=== PATIENT | male | born 1980 | race Caucasian/White ===

== ENCOUNTER 2024-09-23 13:04 | Emergency (ER) | payer BC, SELFPAY ==
[2024-09-23 13:19] VITALS: BP 117/76; PULSE 76; RESP 16; TEMP 37.3; O2SAT 96
--- NOTE | 2024-09-23 13:46 | ED.BACK ---
HPI - Back Pain/Injury General Chief Complaint: Back Pain/Injury Stated Complaint: Lower left back pain Time Seen by Provider: 09/23/24 13:46 Source: patient Mode of arrival: ambulatory Limitations: no limitations History of Present Illness HPI Narrative: 44-year-old male presented for complaint of left lower back pain radiating into the left hip. Onset 5 days. States pain started after throwing boulders into a cross, admit to twisting movements. Taking naproxen. States he has had similar pain in the past. Denies pain radiating into the legs, numbness, tingling, weakness of the lower extremities, or change in gait, saddle paresthesia or loss of bowel or bladder. Related Data Home Medications Medication Instructions Recorded Confirmed bupropion HCl 150 mg 24 hr tablet, 150 mg PO DAILY 09/23/24 09/23/24 extended release rosuvastatin 10 mg tablet 10 mg PO DAILY 09/23/24 09/23/24 Allergies Allergy/AdvReac Type Severity Reaction Status Date / Time No Known Allergies Allergy Verified 09/23/24 13:35 Review of Systems Review of Systems: CONSTITUTIONAL: Denies body aches, fever, chills EYES: Denies visual changes CARDIOVASCULAR: Denies chest pain, palpitations, or edema. RESPIRATORY: Denies cough or dyspnea. GASTROINTESTINAL: Denies abdominal pain, nausea, vomiting, or diarrhea. SKIN: Denies rash, itching, or wounds. MUSCULOSKELETAL: reports back pain NEUROLOGIC: Denies numbness, tingling, or weakness. All systems reviewed & are unremarkable except as noted in HPI and below PMFSH Comments At time of signature, I have reviewed and agree with nursing past medical, surgical, social and family history unless otherwise noted. Please see nursing chart for further information. There is no relevant family history pertinent to the presenting complaint Exam Narrative: GENERAL: Well-appearing CHEST: Speaks in full sentences. No respiratory distress. HEART: Regular rate and rhythm. Normal and equal peripheral pulses. MUSC: No Vertebral point or paraspinal lumbar tenderness. BLEs with normal strength and sensation, normal range of motion; endorses pain with twisting movement. No open wounds, or obvious deformity; alignment normal, pulse palpable and equal bilaterally, skin warm, dry, pink. Capillary refill less than 3 seconds. Gait steady. SKIN: Warm, dry, no rash. NEURO: Alert and oriented x3. Course Course Emergency Course: Patient is aware of diagnosis, understands and agrees to treatment plan. Anticipatory guidance given. Patient agrees to follow-up as directed and is aware of reasons to seek care at the emergency department. Portions of this record may have been created with voice recognition software Level of Care: Express Care Visit Vital Signs Vital signs: Vital Signs Temperature 99.1 F 09/23/24 13:19 Pulse Rate 76 09/23/24 13:19 Respiratory Rate 16 09/23/24 13:19 Blood Pressure 117/76 09/23/24 13:19 Pulse Oximetry 96 09/23/24 13:19 Oxygen Delivery Room Air 09/23/24 13:19 Temperature 99.1 F 09/23/24 13:19 Pulse Rate 76 09/23/24 13:19 Respiratory Rate 16 09/23/24 13:19 Blood Pressure 117/76 09/23/24 13:19 Pulse Oximetry 96 09/23/24 13:19 Oxygen Delivery Room Air 09/23/24 13:19 Reviewed MDM - Back Pain/Injury MDM Narrative Medical decision making narrative: Discussed physical exam findings. Advised supportive measures and signs/symptoms to go to the ER. Pt is appropriate for outpt treatment and f/u. Differential Diagnosis Differential diagnosis: Likely lumbar radiculopathy, sciatica, strain of lumbar region, renal colic, pyelonephritis and discitis Discharge Plan Discharge Clinical Impression: Lumbar radiculopathy Patient Disposition: Home, Self-Care Condition: Stable Instructions: Antibiotic Form, Acute Low Back Pain (ED) Additional Instructions: Avoid lifting. pushing. pulling, or anything that worsens the pain. Walking and other gentle exercising several times a week has been shown to improve back pain; bed rest is not recommended. Take Motrin 600-800mg every 6-8 hours with food for the next 2-3 days, along with Tylenol 1000mg every 8 hours Take muscle relaxers every 8 hours as needed for muscle spasm- do not drive or make any important decisions while on this medication for it can make you drowsy. Over the counter pain cream like icy/hot or biofreeze, or Salon pas/lidocaine 4% patch. You may apply heat or cold to the area as needed. Please follow up with your Primary Care Doctor - call for an appointment. go to the ER If you experience any worsening pain, swelling, numbness, weakness, problems with bladder or bowel function, weakness or loss of feeling in one or both of your legs, or any other serious concerns. Prescriptions: New cyclobenzaprine 10 mg tablet 10 mg PO TID PRN (Reason: muscle spasm) Qty: 10 0RF prednisone 20 mg tablet 20 mg PO DAILY Qty: 18 0RF Rx Instructions: take 3 tablets daily for 3 days, then 2 tablets daily for 3 days then 1 tablet daily for 3 days No Action rosuvastatin 10 mg tablet 10 mg PO DAILY bupropion HCl 150 mg tablet extended release 24 hr 150 mg PO DAILY Follow-up/Referrals: Thomas,SAMANTHA Villareal [Primary Care Provider] -
== END 2024-09-23 13:59 | disposition home or self-care (01) ==
PROVIDERS: Emergency Provider Nurse Practitioner Family; PCP Physician Assistant
DX: M54.16 Radiculopathy, lumbar region (principal); E78.00 Pure hypercholesterolemia, unspecified
CPT/HCPCS: 99203; G0463

== ENCOUNTER 2025-09-08 16:23 | Emergency (ER) | payer OTHER, SELFPAY ==
[2025-09-08 16:34] VITALS: BP 113/87; PULSE 81; RESP 18; TEMP 36.8; O2SAT 98
--- NOTE | 2025-09-08 17:37 | PC.NURSE ---
PT CAME OUT OF ROOM AND STATED THAT HE NEEDED TO GET GOING HE HAD KIDS TO GET TO [facility], HE CAN'T WAIT 2 HOURS. PT STATES HE WOULD JUST COME BACK TOMORROW.
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
--- OUTSIDE RECORDS SUMMARY | 2025-09-08 19:46 | XMS_ITS | Clinical Summary ---
Author Organization [facility] Address [address] [place] [address] Care Team Providers Care A/C Tech Name Role Phone Unavailable Primary Care Provider Unavailabl e Social History Tobacco Use Types Packs/Day Years Used Date Smoking Tobacco: Never Assessed Sex and Gender Information Value Date Recorded Sex Assigned at Not on file Legal Sex Male 10:52 AM CDT Gender Identity Not on file Sexual Orientation Not on file Plan of Treatment Health Maintenance Due Date Last Done Comments HEPATITIS B VACCINES (1 of 3 - 19+ 3-dose series) 1997 10/27/2008, 07/31/2005, 06/01/2004 DTAP/TDAP/TD VACCINES (3 - T d or Tdap) 01/04/2020 01/04/2010, 11/19/2008 COLORECTAL SCREENING 2023 Colorectal Cancer Screening 2023 FIT-DNA Q 3 years 2023 FIT/FOBT Q 1 year 2023 Flex Sig/CT Colonography Q 5 years 2023 INFLUENZA VACCINE (#1) 2025 , 10/04/2019, 10/04/2019, Additional history exists Insurance [employer]
--- OUTSIDE RECORDS SUMMARY | 2025-09-08 19:46 | XMS_ITS | Clinical Summary ---
Author Organization [facility] Address [address] [place] [address] Care Team Providers Care Motion Picture Printer Name Role Phone Dionna Guzman Primary Care Prov ider Allergies Active Allergy Reactions Criticality Noted Date Comments Simvastatin Other (See comments) Low 03/29/2023 Joint pain Medications multivitamin capsule Take 1 capsule by mouth daily Active fish oil-dha-epa 1,200-144-216 mg capsule Take by mouth Active Active Problems Problem Noted Date Diagnosed Date CORRIE (obstructive sleep apnea) 08/12/2024 Psychophysiological insomnia 08/12/2024 Nonsmoker 08/12/2024 BMI 33.0-33.9,adult 08/12/2024 Achilles tendinitis 08/13/2023 Ankle joint stiffness 08/13/2023 Pain in joint involving ankle and foot Closed fracture of lateral malleolus 08/13/2023 Overview (08/13/2023): 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 Closed fracture of left ankle 08/13/2023 activity 08/13/2023 Obesity 08/13/2023 Posttraumatic stress disorder 08/13/2023 Ganglion cyst 08/13/2023 Ganglion cyst of volar aspect of right wrist Chest pressure 03/10/2022 Assessment & Plan (03/10/2022 2:13 PM CDT): The patient's chest pain is atypical for coronary artery disease. Will obtain a stress echocardiogram. Hyperlipidemia 03/10/2022 Popliteal cyst, right 08/29/2018 Surgical History Surgery Date Site/Laterality Comments LEG SURGERY SHOULDER SURGERY GALLBLADDER SURGERY 01/14/2024 Medical History Medical History Date Comments High cholesterol Family History Medical History Relation Name Comments Cancer Maternal Grandfather Relation Name Status Comments Maternal Grandfather Social History Tobacco Use Types Packs/Day Years Used Date Smoking Tobacco: Never Smokeless Tobacco: Never Tobacco Cessation:Counseling Given: Not Answered Alcohol Use Standard Drinks/Week Comments Never 0 (1 standard drink = 0.6 oz pur e alcohol) AUDIT-C Answer Date Recorded Q1: How often do you have a drink containing alcohol? Never 08/17/2023 Q2: How many drinks containi ng alcohol do you have on a typical day when you are drinking? Patient does not drink Q3: How often do you have si x or more drinks on one occasion? Never 08/17/2023 Personal Safety Answer Date Recorded Have you ever been in or are you currently in a harmful physical or emotional relationship or is someone making you feel afraid or unsafe? Denies 12/13/2023 Sex and Gender Information Value Date Recorded Sex Assigned at Not on file Legal Sex Male 4:29 PM STONER OUT Gender Identity Not on file Sexual Orientation Not on file Obstetrics History Last Filed Vital Signs Vital Sign Reading Time Taken Comments Blood Pressure 109/80 08/12/2024 1:00 PM CDT Pulse 64 08/12/2024 1:00 PM CDT Temperature 36.6 C (97.8 F) 12/13/2023 3:33 AM STONER OUT Respiratory Rate 18 08/12/2024 1:00 PM CDT Oxygen Saturation 96% 08/12/2024 1:00 PM CDT Inhaled Oxygen Concentration - - Weight 112.9 kg (249 lb) 08/12/2024 1:00 PM CDT Height 182.9 cm (6') 08/12/2024 1:00 PM CDT Body Mass Index 33.77 08/12/2024 1:00 PM CDT Plan of Treatment Health Maintenance Due Date Last Done Comments Colon Cancer Screening-Colonoscopy 1978 Depression Screening 1978 Hepatitis C Screening 1978 Regular Well Visit/Exam 18-64 1996 DTaP/Tdap/Td Vaccine (3 - Td or Tdap) 01/04/2020 01/04/2010, 11/19/2008, 02/13/2003 Influenza Vaccine (#1) 2025 , 12/08/2022, 10/04/2019, Additional history exists Hepatitis B Screening Completed 10/27/2008 , 07/31/2005, 06/01/2004 Pneumococcal vaccine <65 Aged Out No longer eligible based on patient's age to complete this topic Insurance Service Route [facility] [employer] [facility] Member Subscriber Plan / Payer (Ef fective 2007-Present) Name:Pillo Foster Relation to Subscriber:Self Name:Pillo Foster Payer ID:[id number] (NAIC) Group ID:[id number] Type: [employer] Address: [facility] [id number] [place] [phone] [facility] Care Teams Motion Picture Printer Relationship Specialty Start Date End Date Dionna Guzman PA PCP - General 03/05/19
--- OUTSIDE RECORDS SUMMARY | 2025-09-08 19:46 | XMS_ITS | Clinical Summary ---
Author Organization [facility] Address [address] [place] [address] Care Team Providers Care Anvilsmith Name Role Phone Unavailable Primary Care Provider Unavailabl e Source Comments [facility] [employer],non-owned Affiliates and Associated Physician Practices is amultiple site organization consisting of ambulatory clinics and hospital sitesin [place], [place], [place] and [place]. This disclosure is being madepursuant to the Care Everywhere program and may not contain all information available regarding this patient. Last updated 18.[facility] [employer] Allergies No known active allergies Medications * Be aware that medications may not be up to date on this document. Alwaysverify current medications with the patient. 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 Gender Identity Not on file Sexual Orientation Not on file Last Filed Vital Signs Vital Sign Reading Time Taken Comments Blood Pressure 126/78 03/16/2021 11:30 AM CDT Pulse 68 03/16/2021 11:30 AM CDT Temperature 36.8 C (98.2 F) 03/16/2021 11:30 AM CDT Respiratory Rate 20 03/16/2021 11:30 AM CDT Oxygen Saturation - - Inhaled Oxygen Concentration - - Weight - - Height - - Body Mass Index - - Plan of Treatment Health Maintenance Due Date Last Done Comments STU (AGES 45-75) - COLON CA SCREENING 1978 COLON MONITORING 1978 COLONOSCOPY - COLON CA SCREENING 1978 CT COLONOGRAPHY - COLON CA SCREENING 1978 Colorectal Cancer Screening 1978 FIT - COLON CA SCREENING 1978 FLEX SIG - COLON CA SCREENING 1978 LIPID TESTING 1978 HIV SCREENING 1993 HEPATITIS C SCREENING 07/22/1996 DTAP/TDAP/TD VACCINES (1 - Tdap) 1997 HEPATITIS B VACCINE (1 of 3 - 19+ 3-dose series) 1997 DEPRESSION SCREENING 11/19/2024 COVID-19 VACCINE (1 - 2023- season) 2025 INFLUENZA VACCINE (#1) 2025 8, 10/03/2017, 08/07/2013, Additional history exists ZOSTER VACCINE (1 of 2) 2028 HIB VACCINE Aged Out No longer eligi ble based on patient's age to complete this topic HPV VACCINE Aged Out No longer eligi ble based on patient's age to complete this topic MENINGOCOCCAL (Group B) VACCINE SHARED DECISION-MAKING Aged Out No longer eligible based on patient's age to complete this topic MENINGOCOCCAL GROUPS A/C/Y/W VACCINE Aged Out No longer eligible based on patient's age to complete this topic PNEUMOCOCCAL VACCINE Aged Out No long er eligible based on patient's age to complete this topic Insurance [facility]
--- OUTSIDE RECORDS SUMMARY | 2025-09-08 19:47 | XMS_ITS | Clinical Summary ---
Author Organization [facility] Address [address] [place] [address] Phone Care Team Providers Care Benefit Specialist Name Role Phone JADIEL PALMA MD Unavailable [phone] Reason for Visit and Chief Complaint PROBLEM VISIT Plan of Treatment Referrals To Diagnosis General Surgery FAUSTO CHRISTOPHER - [facility] - [address] [place] [address] - Left upper quadrant abdominal swelling, mass and lump Last Documented On 7 3:58PM ; [facility] Assessments Includes: Assessments from this encounter Findings Allergic bronchitis: otc claritin. - Last Documented On 09/09/2015 6:20PM ; [facility] Fatigue: check labs. - Last Documented On 09/09/2015 6:20PM ; [facility] Restrictive lung disease: consider inhaler. - Last Documented On 09/09/2015 6:20PM ; [facility] Medical Equipment - Implanted Devices Includes: Current Devices No Medical Equipment Recorded Medications Includes: Medications discussed during this encounter and other current Medications Current Medications (continue as prescribed) Viagra 100 MG Tablet 10/12/2015 Provider: JADIEL PALMA MD Diagnosis: Male erectile dy sfunction, unspecified One tablet daily Last Documented On 10/12/2015 12:51PM By JADIEL PALMA MD ; [facility] Medications Administered Includes: Administered Medications from this encounter No Administered Medications Recorded Vital Signs Includes: Vital Signs from this encounter Vital Name 09/09/2015 03:29P Blood Pressure Sitting R 90/70 BP Cuff Size Regular Pulse Rate-Sitting (bpm) 78 Pulse Rhythm Regular Temp-Oral (F) 98.2 Height (in) 72 Weight (lb) 209.2 Body Mass Index (kg/m2) 28.4 Body Surface Area (m2) 2.2 Oxygen Saturation (%) 98 Last Documented: On 09/09/2015 3:32PM ; [facility] Results Includes: Results discussed during this encounter No Results Recorded For Specified Dates History of Present Illness Includes: History of Present Illness from this encounter OLIVERIO STEWARD is a 35 year old male. This 35 year old presents to the office complaining of fatigue and weight gain over the past several months to year. 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 Patient also complains of chest congestion for 3 weeks. He states when he was in stationed in [place] he was exposed to sulfur gas. [facility] and has been diagnosed with restrictive lung disease by pulmonary function tests one and a half years ago. He states he was told he has stiff lungs. Patient states that he has a minor cough that is nonproductive caused by irritation in his throat. He denies history of asthma. He denies sinus congestion and postnasal drainage. - Medication list reviewed with patient. Social History Description Last Updated Good exercise habits runs 5 miles daily ~regular diet 09/09/2015 Last Documented On 5 6:20PM ; [facility] No life circumstance event 09/09/2015 Last Documented On 5 6:20PM ; [facility] No physical disability 09/09/2015 Last Documented On 5 6:20PM ; [facility] Normal activities of daily living 2014 Last Documented On 5 6:20PM ; [facility] Alcohol use 3-4 beers 1-2 times/month Last Documented On 5 6:20PM ; [facility] Currently not in school associate degree 09/09/2015 Last Documented On 5 6:20PM ; [facility] No tobacco use 09/09/2015 Last Documented On 5 6:20PM ; [facility] Not a former smoker 09/09/2015 Last Documented On 5 6:20PM ; [facility] Not using drugs 09/09/2015 Last Documented On 5 6:20PM ; [facility] Occupation [employer]. Rese rves 09/09/2015 Last Documented On 5 6:20PM ; [facility] Single with 3 children 09/09/2015 Last Documented On 5 6:20PM ; [facility] Smoking status : Never smoker 09/09/2015 Last Documented On 5 6:20PM ; [facility] Procedures and Surgical History Surgical History Last Updated History of orthopedic surger y left ankle/leg fracture repair 2003 ~right shoulder anchor placed 200209/09/2015 Last Documented On 5 6:20PM ; [facility] Medical History Includes: Medical History addressed during this encounter No Medical History Recorded Family History Includes: Family History addressed during this encounter Description Last Updated Paternal grandfather's history of Alzhei grace disease 09/09/2015 Last Documented On 5 6:20PM ; [facility] Sister in good health and denies signifi cant illness 09/09/2015 Last Documented On 5 6:20PM ; [facility] Brother in good health and denies signif icant illness 09/09/2015 Last Documented On 5 6:20PM ; [facility] 2 sons, 1 daughter healthy 09/09/2015 Last Documented On 5 6:20PM ; [facility] Family history of breast cancer mother 1 Last Documented On 5 6:20PM ; [facility] Family history of hypertension father Last Documented On 5 6:20PM ; [facility] Family history of cancer grandfather Last Documented On 5 6:20PM ; [facility] Family history of heart disease grandmot her 09/09/2015 Last Documented On 5 6:20PM ; [facility] Review of Systems Includes: Review of Systems from this encounter Systemic: No fever, no chills, and no night sweats. Head: No headache and no sinus pain. Eyes: No vision problems and no eye pain. Otolaryngeal: No hearing loss, no earache, no tinnitus, no hoarseness, and no sore throat. Cardiovascular: No chest pain or discomfort, no palpitations, and the heart rate was not fast. Pulmonary: No dyspnea, no cough, no hemoptysis, and no wheezing. Gastrointestinal: No heartburn. No nausea and no vomiting. Abdominal pain. No diarrhea. Mental Status Includes: Mental Status from this encounter No Mental Status Recorded Functional Status Includes: Functional Status from this encounter No Functional Status Recorded Physical Exam Includes: Physical Exam from this encounter Allergies Includes: Active Allergies No Known Allergies Encounters Encounter Provider Location Date Check-In Time Check-Out Time Diagnosis PROBLEM VISIT ANTONY PHELPS MD [facility] 09/09/20 15 2:25PM 3:58PM Assessment [use For S.o.a.p. Note Free Text] Insurance Includes: Active Insurance Policies Plan Name Member ID Group # Subscriber Relationship Effect anthony Dates - [facility][1] [id number] YURI Reilly Clinical Notes Includes: Clinical Notes from this encounter No Clinical Notes Recorded
--- OUTSIDE RECORDS SUMMARY | 2025-09-08 19:47 | XMS_ITS | Clinical Summary ---
Author Organization [facility] Address [address] [place] [address] Phone Care Team Providers Care Pathology Teacher Name Role Phone LOUIE KWOK, JADIEL Brizuela [phone] Reason for Visit and Chief Complaint NO SHOW Plan of Treatment No Plan of Treatment Recorded Assessments Includes: Assessments from this encounter No Assessments Recorded Medical Equipment - Implanted Devices Includes: Current Devices No Medical Equipment Recorded Medications Includes: Medications discussed during this encounter and other current Medications Current Medications (continue as prescribed) Viagra 100 MG Tablet 10/12/2015 Provider: JADIEL PALMA MD Diagnosis: Male erectile dy sfunction, unspecified One tablet daily Last Documented On 10/12/2015 12:51PM By JADIEL PALMA MD ; [facility] Medications Administered Includes: Administered Medications from this encounter No Administered Medications Recorded Results Includes: Results discussed during this encounter No Results Recorded For Specified Dates History of Present Illness Includes: History of Present Illness from this encounter No History of Present Illness Recorded Social History No Social History Recorded - Smoking Status Unknown Medical History Includes: Medical History addressed during this encounter No Medical History Recorded Family History Includes: Family History addressed during this encounter No Family History Recorded Review of Systems Includes: Review of Systems from this encounter No Review of Systems Recorded Mental Status Includes: Mental Status from this encounter No Mental Status Recorded Functional Status Includes: Functional Status from this encounter No Functional Status Recorded Physical Exam Includes: Physical Exam from this encounter No Physical Exam Recorded Allergies Includes: Active Allergies No Known Allergies Insurance Includes: Active Insurance Policies Plan Name Member ID Group # Subscriber Relationship Effect anthony Dates - [facility] [id number] YURI STEWARD Self Clinical Notes Includes: Clinical Notes from this encounter No Clinical Notes Recorded
--- OUTSIDE RECORDS SUMMARY | 2025-09-08 19:47 | XMS_ITS | Clinical Summary ---
Author Organization [facility] Address [address] [place] [address] Phone Care Team Providers Care Pump Tender Name Role Phone LOUIE KWOK, JADIEL Brizuela [phone] Reason for Visit and Chief Complaint The Chief Complaint is: F/U ON BLOOD WORK Plan of Treatment test levels good w marked wt encouraged 3 sq/d cut [employer] exercise - Last Documented On 10/12/2015 1:34PM ; [facility] Instructions to patient Instructions for patient Last Documented On 5 1:34PM ; [facility] Assessments Includes: Assessments from this encounter No Assessments Recorded Instructions Includes: Instructions from this encounter Instructions to patient Instructions for patient Last Documented On 5 1:34PM ; [facility] Medical Equipment - Implanted Devices Includes: Current Devices No Medical Equipment Recorded Medications Includes: Medications discussed during this encounter and other current Medications New / Renewed during this visit JADIEL PALMA MD on 10/12/2015 Viagra 100 MG Tablet Provider: JADIEL PALMA MD 6 day supply: 6 tablet, 5 refills Diagnosis: Male erectile dysfunction, unspecified One tablet daily Pharmacy: [facility] [address], [phone] - Last Documented On 10/12/2015 12:51PM By JADIEL PALMA MD ; [facility] Medications Administered Includes: Administered Medications from this encounter No Administered Medications Recorded Vital Signs Includes: Vital Signs from this encounter Vital Name 10/12/2015 12:13P Blood Pressure Sitting L 120/80 BP Cuff Size Large Pulse Rate-Sitting (bpm) 67 Pulse Rhythm Regular Respiration Rate (breaths/min) 20 Height (in) 72 Weight (lb) 219 Body Mass Index (kg/m2) 29.7 Body Surface Area (m2) 2.2 Oxygen Saturation (%) 95 Last Documented: On 10/12/2015 12:18P M ; [facility] Results Includes: Results discussed during this encounter No Results Recorded For Specified Dates History of Present Illness Includes: History of Present Illness from this encounter OLIVERIO STEWARD is a 35 year old male. - Medication list reviewed. - No systemic symptoms. - No cardiovascular symptoms - No chest pain or discomfort - No pulmonary symptoms - No dyspnea - No musculoskeletal symptoms Social History Description Last Updated Good exercise habits runs 5 miles daily ~regular diet 09/09/2015 Last Documented On 5 1:33PM ; [facility] No life circumstance event 09/09/2015 Last Documented On 5 1:33PM ; [facility] No physical disability 09/09/2015 Last Documented On 5 1:33PM ; [facility] Normal activities of daily living 2014 Last Documented On 5 1:33PM ; [facility] Alcohol use 3-4 beers 1-2 times/month Last Documented On 5 1:33PM ; [facility] Currently not in school associate degree 09/09/2015 Last Documented On 5 1:33PM ; [facility] No tobacco use 09/09/2015 Last Documented On 5 1:33PM ; [facility] Not a former smoker 09/09/2015 Last Documented On 5 1:33PM ; [facility] Not using drugs 09/09/2015 Last Documented On 5 1:33PM ; [facility] Occupation [employer]. Reser ves 09/09/2015 Last Documented On 5 1:33PM ; [facility] Single with 3 children 09/09/2015 Last Documented On 5 1:33PM ; [facility] Smoking status : Never smoker 09/09/2015 Last Documented On 5 1:33PM ; [facility] Procedures and Surgical History Includes: Procedures from this encounter Procedures Code Diagnosis Performing Provider Service L ocation Service Date Clinical summary provided to patient Last Documented On 5 1:34PM ; [facility] Surgical History Last Updated History of orthopedic surger y left ankle/leg fracture repair 2003 ~right shoulder anchor placed 200209/09/2015 Last Documented On 5 1:33PM ; [facility] Medical History Includes: Medical History addressed during this encounter No Medical History Recorded Family History Includes: Family History addressed during this encounter Description Last Updated Paternal grandfather's history of Alzhei grace disease 09/09/2015 Last Documented On 5 1:33PM ; [facility] Sister in good health and denies signifi cant illness 09/09/2015 Last Documented On 5 1:33PM ; [facility] Brother in good health and denies signif icant illness 09/09/2015 Last Documented On 5 1:33PM ; [facility] 2 sons, 1 daughter healthy 09/09/2015 Last Documented On 5 1:33PM ; [facility] Family history of breast cancer mother 1 Last Documented On 5 1:33PM ; [facility] Family history of hypertension father Last Documented On 5 1:33PM ; [facility] Family history of cancer grandfather Last Documented On 5 1:33PM ; [facility] Family history of heart disease grandmot her 09/09/2015 Last Documented On 5 1:33PM ; [facility] Review of Systems Includes: Review of Systems from this encounter No Review of Systems Recorded Mental Status Includes: Mental Status from this encounter Description The memory was unimpaired Judgement was not impaired Functional Status Includes: Functional Status from this encounter No Functional Status Recorded Physical Exam Includes: Physical Exam from this encounter Allergies Includes: Active Allergies No Known Allergies Encounters Encounter Provider Location Date Check-In Time Check- Out Time Diagnosis NEW PATIENT VISIT JADIEL PALMA MD [facility]- 5 11:43AM 1:34PM Insurance Includes: Active Insurance Policies Plan Name Member ID Group # Subscriber Relationship Effect anthony Dates 1 - [facility] [id number] YURI Reilly Clinical Notes Includes: Clinical Notes from this encounter No Clinical Notes Recorded
--- OUTSIDE RECORDS SUMMARY | 2025-09-08 19:47 | XMS_ITS ---
Care Plan - [facility] Created on: September 08, 2025 YURI STEWARD : 1980 Sex: Male Author Organization [facility] Address [address] [place] [address] Phone Care Team Providers Care Stable Attendant Name Role Phone LOUIE KWOK, JADIEL Martínez Unavailable [phone]
--- OUTSIDE RECORDS SUMMARY | 2025-09-08 19:47 | XMS_ITS ---
Author Organization [facility] Address [address] [place] [address] Phone Care Team Providers Care Certified Lactation Counselor Name Role Phone LOUIE KWOK, JADIEL Martínez Unavailable [phone] Plan of Treatment Referrals To Diagnosis General Surgery FAUSTO CHRISTOPHER - [facility] - [address] [place] [address] - Left upper quadrant abdominal swelling, mass and lump Last Documented On 7 3:58PM ; [facility] Instructions to patient Instructions for patient Last Documented On 5 1:34PM ; [facility] Assessments Includes: Assessments for all patient encounters Findings Encounter Date Allergic bronchitis: otc cla ritin. Fatigue: check labs. Restrictive lung disease: consider inhaler PROBLEM VISIT with ANTONY PHELPS MD 09/09/2015 Last Documented On 5 6:20PM ; [facility] Instructions Includes: Instructions for all patient encounters Instructions to patient Instructions for patient Last Documented On 5 1:34PM ; [facility] Medical Equipment - Implanted Devices Includes: Current and historical Devices No Medical Equipment Recorded Medications Includes: Current and historical Medications Current Medications (continue as prescribed) Viagra 100 MG Tablet 10/12/2015 Provider: JADIEL PALMA MD Diagnosis: Male erectile dy sfunction, unspecified One tablet daily Last Documented On 10/12/2015 12:51PM By JADIEL PALMA MD ; [facility] Medications Administered Includes: Administered Medications in patient's chart No Administered Medications Recorded Results Includes: Results from 09/08/2024 through 09/08/2025 No Results Recorded For Specified Dates History of Present Illness History of Present Illness not supported for this document type No History of Present Illness Recorded Social History Description Last Updated Good exercise habits runs 5 miles daily ~regular diet 09/09/2015 Last Documented On 5 6:20PM ; [facility] No life circumstance event 09/09/2015 Last Documented On 5 6:20PM ; [facility] No physical disability 09/09/2015 Last Documented On 5 6:20PM ; [facility] Normal activities of daily living 2014 Last Documented On 5 6:20PM ; [facility] Alcohol use 3-4 beers 1-2 times/month Last Documented On 5 6:20PM ; [facility] Currently not in school associate degree 09/09/2015 Last Documented On 5 6:20PM ; [facility] No tobacco use 09/09/2015 Last Documented On 5 6:20PM ; [facility] Not a former smoker 09/09/2015 Last Documented On 5 6:20PM ; [facility] Not using drugs 09/09/2015 Last Documented On 5 6:20PM ; [facility] Occupation [employer]. Reser ves 09/09/2015 Last Documented On 5 6:20PM ; [facility] Single with 3 children 09/09/2015 Last Documented On 5 6:20PM ; [facility] Smoking status : Never smoker 09/09/2015 Last Documented On 5 6:20PM ; [facility] Procedures and Surgical History Surgical History Last Updated History of orthopedic surger y left ankle/leg fracture repair 2003 ~right shoulder anchor placed 200209/09/2015 Last Documented On 5 6:20PM ; [facility] Medical History Includes: Medical History in patient's chart No Medical History Recorded Family History Includes: Family History in patient's chart Description Last Updated Paternal grandfather's history of Alzhei grace disease 09/09/2015 Last Documented On 5 6:20PM ; [facility] Sister in good health and denies signifi cant illness 09/09/2015 Last Documented On 5 6:20PM ; [facility] Brother in good health and denies signif icant illness 09/09/2015 Last Documented On 5 6:20PM ; [facility] 2 sons, 1 daughter healthy 09/09/2015 Last Documented On 5 6:20PM ; [facility] Family history of breast cancer mother 1 Last Documented On 5 6:20PM ; [facility] Family history of hypertension father Last Documented On 5 6:20PM ; [facility] Family history of cancer grandfather Last Documented On 5 6:20PM ; [facility] Family history of heart disease grandmot her 09/09/2015 Last Documented On 5 6:20PM ; [facility] Review of Systems Review of Systems not supported for this document type No Review of Systems Recorded Mental Status Description The memory was unimpaired Judgement was not impaired Functional Status No Functional Status Recorded Physical Exam Physical Exam not supported for this document type No Physical Exam Recorded Allergies Includes: Active, inactive, and resolved Allergies No Known Allergies Insurance Includes: Active Insurance Policies Plan Name Member ID Group # Subscriber Relationship Effect anthony Dates 1 - [facility] [id number] YURI STEWARD Self Clinical Notes Includes: Signed Clinical Notes starting from 12/08/2022 No Clinical Notes Recorded
== END 2025-09-08 17:27 | disposition left against medical advice (07) ==
PROVIDERS: Emergency Provider Nurse Practitioner
DX: Z53.21 Procedure and treatment not carried out due to patient leaving prior to being seen by health care provider (principal)
CPT/HCPCS: 99199